=== PATIENT | female | born 1995 | race Caucasian/White ===

== ENCOUNTER 2019-06-03 19:53 | Emergency (ER) | payer BC ==
--- NOTE | 2019-06-03 21:18 | CRLCR ---
Indication: Injury and pain Technique: Right 4th finger 3 right hand 3 views Comparison: None Findings/Impression: Bones: Acute mildly angulated fracture is in the proximal shaft of the right 4th metacarpal. No other osseous abnormality. Joint spaces: Unremarkable. Soft tissues: Unremarkable. Dictated by Yao Stratton MD @ 06/03/2019 9:16:22 PM Dictated by: Yao Stratton MD @ 06/03/2019 21:16:27 (Electronically Signed)
[2019-06-03] MEDS ORDERED: Sodium Chloride 0.9% 10 ML Syringe FLUSH PRN (21:30)
[2019-06-03] MEDS ORDERED: ceFAZolin 1 GM in Premix Bag 1 BAG IV ONE (21:30)
[2019-06-03] MEDS ORDERED: Bacitracin Oint 1 GM U/D Packet TOP ONE (21:38)
[2019-06-03] MEDS: ceFAZolin 1 GM in Sodium Chloride 0.9% 50 ML IV ONE ×2 (21:45→21:56)
[2019-06-03] MEDS ORDERED: cefTRIAXone 1 GM, Lidocaine 1% 2.1 ML IM ONE ×2 (21:59)
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
== END 2019-06-03 22:44 | disposition home or self-care (01) ==
LOC: JP.ED 19:53
DX: S62.324A Displaced fracture of shaft of fourth metacarpal bone, right hand, initial encounter for closed fracture (principal); W22.8XXA Striking against or struck by other objects, initial encounter
CPT/HCPCS: 29125; 73130; 96372; 99283; J0696; J2001; J0690; J7050